=== PATIENT | female | born 1995 | race Two or more races ===

== ENCOUNTER 2022-08-03 21:04 | Emergency (ER) | payer SELFPAY ==
[~2022-08-03] VITALS: Ht 157.5 cm; Wt 72.6 kg
[2022-08-03 21:08] VITALS: BP 154/86
--- NOTE | 2022-08-03 21:17 | NUR ---
Patient discharged to home in stable condition. Written and verbal after care instructions given. Patient verbalizes understanding of instruction.
== END 2022-08-03 21:45 | disposition home or self-care (01) ==
LOC: ER 21:07 → EDBD 21:07 → ER 21:45

== ENCOUNTER 2022-08-04 06:27 | Emergency (ER) | payer SELFPAY ==
[~2022-08-04] VITALS: Ht 170.2 cm; Wt 70.3 kg
--- NOTE | 2022-08-04 06:32 | NUR ---
ORESTES FROM THE STREETS, WAS WALKING AROUND NAKED IN THE [place] PARKING LOT. REFUSES TO ANSWER QUESTIONS. NO MEDICAL COMPLAINTS. TOLERATING R/A WELL WITH MO RESP DISTRESS. SAFETY MEASURES IN PLACE.
--- NOTE | 2022-08-04 06:39 | NUR ---
COVID ANTIGEN SWAB COLLECTED AND SENT TO LAB
--- NOTE | 2022-08-04 06:49 | NUR ---
URINE COLLECTED AND SENT TO LAB
--- NOTE | 2022-08-04 07:02 | NUR ---
ENGRAVER WOOD AT PT'S BEDSIDE
[2022-08-04 07:14] LABS: BILIRUBIN,URINE 1+ (NEGATIVE); COLOR,URINE DARK YELLOW (YELLOW); LEUKOCYTE ESTERASE ,URINE TRACE (NEGATIVE); NITRITE, URINE NEGATIVE (NEGATIVE); PROTEIN,URINE 2+ mg/dl (NEGATIVE); UGLUCOSE NEGATIVE (NEGATIVE)
[2022-08-04 07:18] LABS: BACTERIA,URINE Few /HPF (None Seen); RBC,URINE 0-2 /HPF (0-2); SQUAMOUS EPITHELIAL CELL,UR Rare /HPF (None Seen)
[2022-08-04 07:22] LABS: BASOPHILS # (AUTO) 0.1 K/uL (0.0-0.2); BASOPHILS % (AUTO) 0.4 % (0.0-2.0); EOSINOPHILS % (AUTO) 0.2 % (0.0-6.0); HEMATOCRIT 37 % (33-45); HEMOGLOBIN 12.5 g/dL (11.5-14.8); LYMPHOCYTES # (AUTO) 1.1 K/uL (0.8-4.8); LYMPHOCYTES % (AUTO) 7.2 % (20.0-44.0); MEAN CORPUSCULAR HGB CONC 34 g/dl (31.0-36.0); MEAN CORPUSCULAR VOLUME 91 fL (82-100); MONOCYTES # (AUTO) 0.8 K/uL (0.1-1.30); MONOCYTES % (AUTO) 5.5 % (2.0-12.0); NEUTROPHILS # (AUTO) 12.8 K/uL (1.8-8.9); NEUTROPHILS % (AUTO) 86.7 % (43.0-81.0); PLATELET COUNT (AUTO) 421 K/uL (150-450); RED BLOOD CELL COUNT(AUTO) 4.05 MIL/uL (4.0-5.2); WHITE BLOOD COUNT (AUTO) 14.7 K/uL (4.3-11.0)
[2022-08-04 08:23] LABS: CALCIUM, SERUM 9.2 mg/dL (8.5-10.1); CARBON DIOXIDE 26 mmol/L (21-32); CHLORIDE 104 mmol/L (98-107); CREATININE 0.8 mg/dL (0.6-1.3); GLUCOSE 80 mg/dL (74-106); POTASSIUM 3.1 mmol/L (3.5-5.1); SODIUM SERUM 141 mmol/L (136-145); UREA NITROGEN, BLOOD 9 mg/dL (7-18)
[2022-08-04 08:28] LABS: ALANINE AMINOTRANSFERASE 21 U/L (12-78); ALBUMIN 3.9 g/dL (3.4-5.0); ALCOHOL, BLOOD < 3 mg/dL (0-0); ALKALINE PHOSPHATASE 78 U/L (46-116); ASPARTATE AMINOTRANSFERASE 20 U/L (15-37); BILIRUBIN,DIRECT 0.2 mg/dL (0.0-0.2); BILIRUBIN,TOTAL 0.7 mg/dL (0.2-1.0); TOTAL PROTEIN, SERUM 7.6 g/dL (6.4-8.2)
[2022-08-04 08:48] LABS: ACETAMINOPHEN 0 ug/ml (10-30)
--- NOTE | 2022-08-04 10:52 | NUR ---
SS consult requested for behavioral, drug dependence and homelessness. SW met with pt. at bedside. Nursing assisted with waking pt. as she was sleeping and not receptive to verbal cues. The pt. did not engage in meaningful conversation with SW. Pt. was attempting to provide address but speech was unintelligible. SW will reassess pt. in an hour.
--- NOTE | 2022-08-04 12:13 | NUR ---
SS Note: SW met with pt. at bedside to reevaluate the pt. The pt. is a 27 year old female who was BIBRA due to pt. being disrobed in public per EMR. The pt. is now awake in her bed and SW attempted to interview pt. Pt. does not make eye contact and is looking around the room. Pt. did not engage in conversation with SW. The pt. has labile mood and affect. The pt. did not comply with interview and began crying as she was responding to internal stimuli. PRISCILLA discussed with MD who will possibly provide antipsychotic medication to stabilize patient. Per MD request, PRISCILLA called land leasing information clerk crissi clinician Michelle Calderon and left her a voicemail about the case. PRISCILLA will follow up at a alter time. PRISCILLA called ED admitting to assist with applying for presumptive medi-sunshine for possible placement purposes. PRISCILLA will follow up at a later time.
[2022-08-04] MEDS ORDERED: OLANZAPINE 10 MG VIAL IM ONE ×2 (12:30→12:41)
--- NOTE | 2022-08-04 12:45 | NUR ---
ONCE PATIENT WAKES UP, WILL CALL SERGEY IQBAL.
--- NOTE | 2022-08-04 16:22 | NUR ---
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 Patient will most likely need ED stabilization with anti-psychotic medication. Zyprexa 10 mg given earlier and patinet is now sleeping. This clinician suggests evaluation once pt is calm and cooperative and able to talk coherently. Additional anti-psychotic medication may be needed. Patient could not be evaluated due to sedation. No facility is likely to accept pt. so she will need ED stabilization. Psychiatry consult requested from Dr Hernesto Polanco [employer]. This was requested at 1630 today. Pt. does not need to be held in ED awaiting consult. This is likely to happen on 08/05/22. Will monitor and be in close collaboration with ED with the hope that stimulant-induced psychosis resolves.
[2022-08-04] MEDS ORDERED: POTASSIUM CHLORIDE 20 MEQ TAB.PRT.SR PO ONE ×3 (17:00→17:43)
[2022-08-04] MEDS ORDERED: CEPHALEXIN MONOHYDRATE 500 MG CAPSULE PO SCH (17:00)
[2022-08-04] MEDS ORDERED: CEPHALEXIN MONOHYDRATE 500 MG CAPSULE PO ONE (17:42)
[2022-08-05] MEDS ORDERED: OLANZAPINE 10 MG VIAL IM ONE (09:30)
[2022-08-05] MEDS ORDERED: OLANZAPINE 5 MG TABLET PO ONE (09:30)
--- NOTE | 2022-08-05 11:50 | NUR ---
SS Note: SW met with pt. at bedside. The pt. is alert & oriented and makes good eye contact. The pt. was interviewed by SS Director, Michelle Calderon as well who cleared her for discharge. The pt. appears disheveled with dysphoric mood & affect. The pt. denies SI/HI and denies hallucinations. The pt. remained calm & cooperative throughout assessment. The pt. stated she is currently experiencing homelessness. SW provided pt. with homeless resources including halfway placement, outpatient mental health resources,TAP card, and pt. accepted resources. Pt. stated she will [facility]. Pt. signed homeless waiver and it was placed in the pt.'s chart. SW discussed case with Jaci REIS. The following resources were provided to pt. : Year-round shelters: [facility] [place] [address] [place], [place] [id number] ; [facility] [place] [address] [place] [address]; [facility] [address] [facility] [address] Hygiene: [facility]: [address] [place] ; [facility] [address] [facility] ; [facility] [address] [facility] . Food Resources: [place] [facility] at [facility]- [address] [facility]. [place]; Meet Each Need with Dignity ([facility]) [address] [facility]; [facility] [address] [facility]; [facility] [address] [facility]. Mental Health resources provided: [facility] [address] [place] [address] ; [facility] [employer] [address] [facility] [address], [place] [address] ; [address] Dowell [facility] [address] [place] [address] ; [facility] [place], [place] [address] Healthcare Clinics: [facility] [address] [facility], [address] [place]. [place] ; [facility] [address] [facility] [address] [place] [address]; [facility] [address] [facility] [place] [address] [phone] Counseling--Outpatient [facility] [address] [facility], [place] [address] (Specializes in in-depth psychotherapy for emotional distress: anxiety, depression, interpersonal conflicts, life transitions, childhood abuse) [facility] [address] [place] [address] (Assist with solving problem marital difficulties, separation & divorce, aging parents, & grief, chronic & terminal illness) [facility] [address] [place] [address] (Deal with loss & grief, anxiety, marital difficulties) Homebound/Mental Health Services [address] [facility], [address] [place] [address] (Provide in-home mental services to people who are incapable of leaving their homes) [facility] Senior [facility] [address] [place] [address] [facility] [address] [facility] [place] [address] PSYCHIATRIC OUTPATIENT SERVICES [facility] Partial Hospitalization and Intensive Outpatient Program (Managed Care and [place] Only)[address] [facility]. [facility] [phone] [facility] Partial Hospitalization and Outpatient [id number] [facility]. [address] [place], [place] [phone] [facility] [id number] [facility]. [address] [place], [place] [phone] [facility] Partial Hospitalization and Outpatient [id number] Lilly Barlow, [phone] Substance Abuse resources provided included: [facility] Substance Abuse Self-Helpline ([facility]) ; [facility] [address] [facility]. [place] [address] ; [facility] [address] [facility] [address] ; [facility] [address] [facility] [phone] ; [facility] [address] [facility] [phone] ; [facility] [address] [facility] [address] ; [facility] [address] [facility] [phone] ; [facility] Substance Abuse Helpline([facility] ; [facility] ; [facility]; [facility] [place]; [facility] [place]; [facility] [place]; [facility] [place]; [place] [facility] [place]; [facility] [employer] [place]; Alcoholics Anonymous -[facility]; Tz-Cvuj-Jzcublt ; Marijuana Anonymous -[facility]; Narcotics Anonymous www.na.org;
--- NOTE | 2022-08-05 11:51 | NUR ---
pt was medically and psych cleared. ws seen by social worker clinical and provided w/ resources. ambulatory w/ steady gait. homeless waiver, and aci signed. provided w/ tap card for transport.
[2022-08-05 11:55] VITALS: BP 132/77
== END 2022-08-05 11:56 | disposition home or self-care (01) ==
LOC: ER 06:29
DX: F23 Brief psychotic disorder (principal); F15.10 Other stimulant abuse, uncomplicated; F12.10 Cannabis abuse, uncomplicated; N39.0 Urinary tract infection, site not specified; E87.6 Hypokalemia; D72.829 Elevated white blood cell count, unspecified; Z20.822 Contact with and (suspected) exposure to COVID-19; Z59.00 Homelessness unspecified
CPT/HCPCS: 99291; 96372; 85025; 80048; 87086; 80076; 81001; 36415; 87426; 80143; 80320; 80307; J3490; C9803; G0480